=== PATIENT | female | born 1940 | race Caucasian/White ===

== ENCOUNTER → 2016-12-24 | Outpatient (CLI) | payer MEDICARE, BC ==
--- NOTE | 2016-12-24 13:20 | CT ---
EXAM DESCRIPTION: Chest w/o Contrast CLINICAL HISTORY: PULMONARY FIBROSIS COMPARISON: Chest x-ray dated 13 December 2016 TECHNIQUE: Transaxial images were obtained without intravenous contrast media. Sagittal and coronal reconstruction was performed. FINDINGS: No thyroid abnormality is detected. No pathologic axillary adenopathy is observed. Surgical clips are observed in the right axilla. Surgical clips are also observed in the right breast. Calcified granulomas are observed in the spleen. No adrenal masses are detected. Degenerative changes are observed in the thoracic spine. Bronchiectasis is observed in the lower lobe and lingula on the left and in the right lower lobe and right middle lobe. Some thickening and inflammation is observed in a right lower lobe airway in the superior segment no pulmonary nodule is observed. Coronary artery calcification is observed. No hilar or mediastinal adenopathy is observed. Prominence the pulmonary arteries are observed and may be the result of pulmonary artery hypertension. IMPRESSION: 1. Bronchiectasis is observed in both lower lungs most pronounced in the right middle lobe and lingula. There is evidence of active inflammation in the superior segment of the right lower lobe. 2. Prominence of the proximal pulmonary arteries are observed and felt be the result of pulmonary artery hypertension. Electronically signed by: Gregory Corrigan MD 12/24/2016 1:19 PM CDT
== END | disposition home or self-care (01) ==
LOC: CT 10:19
PROVIDERS: ATTEND Internal Medicine
DX: J84.10 Pulmonary fibrosis, unspecified (principal)

== ENCOUNTER → 2017-02-03 | Outpatient (CLI) | payer MEDICARE, BC ==
--- NOTE | 2017-02-03 15:20 | RAD ---
EXAM DESCRIPTION: Shoulder,Left 2 or More Views CLINICAL HISTORY: PAIN COMPARISON: None Available. TECHNIQUE: Four views of the left shoulder. FINDINGS: The shoulder is osteopenic but normally aligned. The chest wall and upper lung medellin appear clear with interstitial or fibrotic changes in the lower lung field noted. No fracture or dislocation is seen. Only mild degenerative changes are present. IMPRESSION: 1. Osteopenia and mild degenerative changes. Electronically signed by: Yakov Quijano MD 02/03/2017 3:20 PM CDT
== END ==
LOC: RAD 09:14
PROVIDERS: ATTEND Orthopaedic Surgery
DX: M25.512 Pain in left shoulder (principal); M85.812 Other specified disorders of bone density and structure, left shoulder; M12.812 Other specific arthropathies, not elsewhere classified, left shoulder

== ENCOUNTER → 2017-04-06 | Outpatient (CLI) | payer MEDICARE, BC | END | disposition home or self-care (01) | LOC: RESP 10:10 | PROVIDERS: ATTEND Surgery Plastic and Reconstructive Surgery | DX: Z01.810 Encounter for preprocedural cardiovascular examination (principal); Z01.811 Encounter for preprocedural respiratory examination; Z01.812 Encounter for preprocedural laboratory examination ==

== ENCOUNTER → 2018-02-03 | Outpatient (CLI) | payer MEDICARE, BC ==
--- NOTE | 2018-02-05 08:48 | CT ---
EXAM DESCRIPTION: Abdomen/Pelvis w/Contrast: Computed Tomography. CLINICAL HISTORY: LLQ ABD PAIN COMPARISON: CT scan chest 12/24/2016. TECHNIQUE: Spiral-axial scans at 5.0 mm intervals through the abdomen and pelvis, after nonionic IV contrast. No oral contrast. Coronal and sagittal 2.0 mm reconstructions. No adverse reactions. Total Exam DLP: 266.53 mGy-cm. This exam was performed according to our departmental dose-optimization program which includes automated exposure control, adjustment of the mA and/or kV according to patient size and/or use of iterative reconstruction technique; to reduce radiation dose to as low as reasonably achievable (ALARA). FINDINGS: Lung bases and pleura: Bilateral peripheral pulmonary air-filled cysts more prevalent in the inferior lingula and right middle lobe and in the lower lobes. Also dilated airspaces and bilateral parenchymal densities, 5 mm subpleural nodule in the left lower lobe subpleural region (series 2, image 6). No pleural effusion. Liver, Stomach, Spleen, Adrenal Glands: Stomach is unremarkable. Calcifications in the spleen. Other solid organs are negative. Pancreas, Gallbladder, Ducts: Multiple gallstones in the gallbladder including the gallbladder neck. Common bile duct caliber are unremarkable. Pancreas is negative. Kidneys and Ureters: Unremarkable. Mesentery: Possible focal stranding around a loop of small bowel; please see below. Otherwise no stranding or Or fascial thickening. No free air or ascites. Aorta: Moderate atherosclerotic calcifications. No significant luminal narrowing and no aneurysm. Small Bowel: Focal distended small bowel with fluid and gas in the upper pelvis to the left of midline (series 2, images 47-62). Transition point images 60 and 61. Coronal series 602, images 70-72. Question of minimal periserosal fatty stranding. Normal caliber in the remainder of the small bowel. Terminal Ileum/Cecum: Normal caliber. Appendix not seen. Colon: Distal sigmoid and rectum distended by fecal material.. Pelvic Organs: Vaginal cuff unremarkable. No free fluid. Ovaries not seen. Spine and Bony Pelvis: Moderate narrowing L5-S1 disc space. No destructive lesions. Minimal hip joint space narrowing. Abdominal Wall/Back Soft Tissues: Unremarkable. IMPRESSION: 1. Focal dilated loop of distal jejunum in the upper pelvis to the left of midline point which could represent a polyp or mass or focal inflammation. Cannot exclude early intussusception. Consider small bowel follow-through examination. 2. Multiple gallstones in the gallbladder including the gallbladder neck. Common bile duct nondilated. Consider follow-up right upper quadrant abdominal ultrasound. Electronically signed by: Derick Pandya MD 02/05/2018 8:47 AM CDT
== END ==
LOC: CT 08:00
PROVIDERS: ATTEND Family Medicine
DX: R10.814 Left lower quadrant abdominal tenderness (principal); N30.00 Acute cystitis without hematuria; K80.20 Calculus of gallbladder without cholecystitis without obstruction; I10 Essential (primary) hypertension

== ENCOUNTER → 2018-02-14 | Outpatient (CLI) | payer MEDICARE, BC ==
--- NOTE | 2018-02-14 10:02 | US ---
EXAM DESCRIPTION: Abdomen,Complete CLINICAL HISTORY: CALC OF GB W/O CHOLECYSTITIS COMPARISON: None Available. TECHNIQUE: Complete abdominal ultrasound FINDINGS: Visualized portions of the pancreas are unremarkable. No peripancreatic fluid. Bowel gas obscures some areas. Normal caliber of the aorta. Intimal arteriosclerotic changes are seen in the aorta. Normal appearance of the inferior vena cava. Liver parenchyma is homogeneous in texture with normal echogenicity. No liver mass or intrahepatic bile duct dilatation. No liver surface irregularity. Normal appearance of hepatic veins and portal vein. Gallbladder is abnormal with multiple small shadowing stones nearly filling the lumen. Sonographic Iraheta sign is reported as negative. Stones are in the 2 to 4 mm size range. No gallbladder wall thickening. Common bile duct is normal in caliber measuring 2.5 mm. The right kidney measures 9.9 cm in length. Normal renal cortical echogenicity. The renal cortical thickness appears normal. No right renal mass, shadowing stone or cyst. There is no hydronephrosis. Spleen is normal in size. No focal splenic lesion. The left kidney measures 9.1 cm in length. Normal renal cortical echogenicity. The renal cortical thickness appears normal. No left renal mass, shadowing stone or cyst. There is no hydronephrosis. IMPRESSION: Multiple small stones in the gallbladder lumen without other changes to suggest acute cholecystitis. Electronically signed by: Axel Hurley MD 02/14/2018 10:01 AM CDT
== END ==
LOC: US 08:00
PROVIDERS: ATTEND Family Medicine
DX: K80.20 Calculus of gallbladder without cholecystitis without obstruction (principal)

== ENCOUNTER 2018-04-07 06:00 | Day surgery (SDC) | payer MEDICARE, BC ==
[2018-04-07] MEDS ORDERED: SODIUM CHL 0.9% 50ML MIN-BAG+ 50 ML IVPB ONE (06:51)
[2018-04-07] MEDS ORDERED: LACTATED RINGERS 1,000 ML ONE (06:52)
[2018-04-07] MEDS ORDERED: ceFAZolin SODIUM 1 GM VIAL ONE (06:52)
[2018-04-07] MEDS ORDERED: ePHEDrine SULF 50 MG/ML ONE (07:00)
[2018-04-07] MEDS ORDERED: METOCLOPRAMIDE HCL INJ 10 MG/2 ML VIAL ONE (07:00)
[2018-04-07] MEDS ORDERED: raNITIdine HCL INJ 25 MG/ML VIAL ONE (07:00)
[2018-04-07] MEDS ORDERED: PROPOFOL 200 MG/20 ML VIAL IV ONE (07:00)
[2018-04-07] MEDS ORDERED: DEXAMETHASONE INJ 10 MG/ML VIAL ONE (07:00)
[2018-04-07] MEDS ORDERED: HEPARIN SODIUM (PORCINE) 10,000 UNITS/ML VIAL ONE (07:01)
[2018-04-07] MEDS ORDERED: BUPIVACAINE 0.25% W/EPI 50 ML VIAL INJ ONE (07:01)
[2018-04-07] MEDS ORDERED: MIDAZOLAM INJ 2 MG/2 ML VIAL ONE (08:25)
[2018-04-07] MEDS ORDERED: ROCURONIUM BROMIDE 10 MG/ML VIAL ONE (08:26)
[2018-04-07] MEDS ORDERED: fentaNYL CITRATE INJ 50 MCG/ML AMP ONE (08:26)
[2018-04-07] MEDS ORDERED: CARBOXYMETHYLCELLULOSE 0.5% OPHTH SOL 0.4 ML UD ONE (09:01)
[2018-04-07] MEDS ORDERED: HYDROmorphone HCL INJ 2 MG/ML VIAL ONE (09:33)
[2018-04-07] MEDS ORDERED: SUGAMMADEX SODIUM 200 MG/2 ML VIAL IV ONE (10:05)
[2018-04-07] MEDS ORDERED: ONDANSETRON INJ 4 MG/2 ML VIAL ONE ×2 (10:49→12:27)
[2018-04-07] MEDS ORDERED: HYDROcodone 5MG/APAP 325MG 1 EA TAB ONE (11:19)
--- NOTE | 2018-04-07 11:20 | OP ---
DATE OF PROCEDURE: 04/07/18 PREOPERATIVE DIAGNOSIS: 1. Symptomatic cholelithiasis. POSTOPERATIVE DIAGNOSIS: 1. Symptomatic cholelithiasis. 2. Chronic cholecystitis. PROCEDURE: 1. Laparoscopic cholecystectomy with intraoperative cholangiography using fluoroscopy. SURGEON: Antoine Youssef MD. REFINERY OPERATOR ASSISTANT: None. ANESTHESIA: Local infiltration of 0.25% Marcaine with epinephrine and general endotracheal anesthesia. INDICATION: The patient is a 77-year-old female who has cholelithiasis diagnosed by CT scan. She has reflux symptoms, bloating and fatty food intolerance with pain in the right upper quadrant. FINDINGS: Intraoperative cholangiography revealed free flow into the duodenum. The gallbladder was long, had been distended, there were several small stones. The wall was thickened. No other pathology was identified other than some adhesions in the lower midline from previous hysterectomy. DESCRIPTION OF PROCEDURE: After adequate general endotracheal anesthesia was obtained, the patient was prepped and draped in the usual sterile manner. Surgical time-out was taken. The infraumbilical area was infiltrated with local anesthesia. A curvilinear incision was fashioned and carried down through the subcutaneous tissue to the midline fascia using blunt dissection. Traction sutures were placed on either side of the midline. A small incision was made in the midline fascia and the peritoneum was opened bluntly. Gala trocar was introduced under direct vision into the abdominal cavity and fixed in place with the 20 mL balloon. CO2 was then insufflated until a pressure of 12 mmHg was reached and the abdomen was tympanitic in all four quadrants. When this was done, the laparoscope was introduced. The abdomen was inspected with the previously noted findings. The patient was then placed in reverse Trendelenburg position, turned to the left side. The upper abdominal ports were placed under direct vision. The gallbladder was grasped, retracted anteriorly and laterally. The triangle of Calot was then explored with the cystic duct and cystic artery identified and isolated. The cystic duct was hemoclipped once proximally. The cystic artery was hemoclipped twice proximally and once distally. A small incision was made in the cystic duct. The cholangiogram catheter was introduced through a separate stab wound in the right upper quadrant, introduced into the cystic duct. Cholangiograms were then taken using fluoroscopy which revealed free flow into the duodenum with no filling defects or strictures noted. When this was done, the cystic duct catheter was removed. The cystic duct was hemoclipped three times distally and divided between the hemoclips. The cystic artery was divided. The gallbladder was then dissected free from the gallbladder bed of the liver using electrocautery. Another bleeder was identified on the lower aspect of the gallbladder bed of the liver and this was clipped also. The gallbladder was then removed from the infraumbilical port site in the usual manner under direct vision. When this was done, the subhepatic space and subphrenic space were irrigated copiously with saline. The effluent was noted to be clear. The hitesh hepatis was inspected and no bleeding or bile leak was identified. The gallbladder bed of the liver was dry. The upper abdominal ports were removed under direct vision and good hemostasis was noted. At this point, the CO2, the laparoscope and the infraumbilical port were removed. The infraumbilical port site fascia was approximated with a single [id number] suture of 0 Vicryl. Subcutaneous tissue was irrigated with saline. Skin edges were approximated with 4-0 Vicryl subcuticular sutures, benzoin and Steri-Strips. Sterile dressings were applied. The patient was awakened and taken to the Recovery Room in good and stable condition. Estimated blood loss was less than 50 mL. All sponge, needle and instrument counts were correct. #[id number] [facility]
[2018-04-07 13:00] VITALS: BP 123/55; TEMP 98.1; O2SAT 98
== END 2018-04-07 12:45 | disposition home or self-care (01) ==
LOC: AMB 06:00
PROVIDERS: ATTEND Surgery
DX: K80.10 Calculus of gallbladder with chronic cholecystitis without obstruction (principal); F41.1 Generalized anxiety disorder; K21.9 Gastro-esophageal reflux disease without esophagitis; I10 Essential (primary) hypertension; M81.0 Age-related osteoporosis without current pathological fracture; Z86.73 Personal history of transient ischemic attack (TIA), and cerebral infarction without residual deficits; Z88.0 Allergy status to penicillin; Z88.2 Allergy status to sulfonamides; Z88.8 Allergy status to other drugs, medicaments and biological substances; Z79.899 Other long term (current) drug therapy
CPT/HCPCS: 00790; 36415; 47563; 76000; 80053; 81001; 85025; 88304; J0690; J1100; J1170; J1644; J2250; J2405; J2765; J2780; J3010; J3490; J7050; J7120

== ENCOUNTER → 2019-06-25 | Outpatient (CLI) | payer MEDICARE, BC ==
--- NOTE | 2019-06-25 19:41 | US ---
EXAM DESCRIPTION: Soft Tissue,Head/Neck: ULTRASOUND. CLINICAL HISTORY: 79 years Female LOC SWELLING, MASS AND LUMP, NECK COMPARISON: None Available. TECHNIQUE: Transcutaneous scanning: Chowdhury-scale and Doppler modes. FINDINGS: Patient showed ski patroller location of mass on the lateral left neck. Scanning of the subdermal, adipose subcutaneous tissue and muscle. Small lymph nodes. No dominant solid mass or distinct cyst. Bifurcation of the left common carotid artery at this site. Mild dilation with atherosclerotic calcification. IMPRESSION: No ultrasound abnormality at site where patient palpates mass left lateral neck. This is adjacent to the bifurcation of the left common carotid artery which is slightly dilated. Electronically signed by: Derick Pandya MD 06/25/2019 7:39 PM CDT
== END ==
LOC: US 09:30
PROVIDERS: ATTEND Family Medicine
DX: R22.1 Localized swelling, mass and lump, neck (principal)

== ENCOUNTER → 2019-07-03 | Outpatient (CLI) | payer MEDICARE, BC ==
--- NOTE | 2019-07-04 08:45 | CT ---
CLINICAL HISTORY: 79 years Female, chronic frontal sinusitis COMPARISON: CT scan head January 2015. TECHNIQUE: Spiral, axial 2.5 x 2.5 mm scans through the maxillofacial bones without contrast. 2.0 mm coronal and sagittal reconstructions. Axial, helical 2.5 mm reconstruction using bone algorithm. Total Exam DLP: 247.6 to mGy-cm. This exam was performed according to our departmental CT dose-optimization program which includes automated exposure control, adjustment of the mA and/or kV according to patient size and/or use of iterative reconstruction technique; to reduce radiation dose to as low as reasonably achievable (ALARA). FINDINGS: Concavity of the anterior cevallos of the bilateral maxillary antra appears to be symmetric and normal variation in this patient also seen on prior head CT scan. Minimal mucoperiosteal thickening in the antra bilaterally with no air-fluid levels. Trace amount of similar thickening anterior ethmoid air cells bilaterally. Frontal sinuses bilaterally with no mucoperiosteal thickening or air-fluid levels. Other sinus cavities are well aerated with no air-fluid levels. No significant deviation of the nasal septum. Bilateral nasal bones and maxillary spine are negative. Minimal bilateral turbinate mucosal hypertrophy. Bilateral mastoid air cells are well aerated. Included maxillofacial bones showing no significant abnormalities. IMPRESSION: Minimal bilaterally symmetric chronic paranasal sinusitis. Specifically, bilateral frontal sinus cavities are unremarkable.. Electronically signed by: Derick Pandya MD 07/04/2019 8:43 AM CDT
== END ==
LOC: CT 10:30
PROVIDERS: ATTEND Family Medicine
DX: J32.1 Chronic frontal sinusitis (principal)

== ENCOUNTER → 2019-11-09 | Outpatient (CLI) | payer MEDICARE, BC | LOC: GMAJ 10:47 | PROVIDERS: ATTEND Family Medicine | DX: M79.10 Myalgia, unspecified site (principal) ==